=== PATIENT | female | born 1970 | race Caucasian/White ===

== ENCOUNTER → 2021-10-03 10:39 | Outpatient (BNVA) | payer OTHER, SELFPAY | PROVIDERS: Visit Provider Internal Medicine | DX: E11.9 Type 2 diabetes mellitus without complications (principal); E89.0 Postprocedural hypothyroidism; E03.9 Hypothyroidism, unspecified; D51.0 Vitamin B12 deficiency anemia due to intrinsic factor deficiency; E78.2 Mixed hyperlipidemia | CPT/HCPCS: 36415; 80053; 80061; 82607; 83036; 84439; 84443; 84480 ==